=== PATIENT | male | born 1990 | race Two or more races ===

== ENCOUNTER 2021-08-27 14:01 | Emergency (ER) | payer OTHER ==
[~2021-08-27] VITALS: Ht 177.8 cm; Wt 108.9 kg
[2021-08-27 15:43] VITALS: BP 130/70
[2021-08-27] MEDS ORDERED: KETOROLAC TROMETH 60MG/2ML VIAL IM ONE (15:45)
[2021-08-27] MEDS ORDERED: IBUP800T27 PO (16:21)
== END 2021-08-27 17:02 | disposition home or self-care (01) ==
LOC: EDBD 14:01 → ER 14:01
DX: S16.1XXA Strain of muscle, fascia and tendon at neck level, initial encounter (principal); S20.219A Contusion of unspecified front wall of thorax, initial encounter; V43.62XA Car passenger injured in collision with other type car in traffic accident, initial encounter; Y93.89 Activity, other specified; Y92.410 Unspecified street and highway as the place of occurrence of the external cause; Y99.8 Other external cause status
CPT/HCPCS: 71046